=== PATIENT | female | born 1980 | race Caucasian/White ===

== ENCOUNTER 2017-05-16 13:41 | Emergency (ER) | payer OTHER, MEDICAID ==
[2017-05-16 14:05] VITALS: BP 127/75
[2017-05-16] MEDS ORDERED: ACET325T9 PO (14:12)
[2017-05-16] MEDS ORDERED: DIAZ5TAB PO (14:12)
--- NOTE | 2017-05-16 14:12 | PHYS DOC ---
Past Medical History Past Medical History: Bipolar, Depression, Schizophrenia Past Surgical History: Hysterectomy, Knee Replacement, Tubal ligation Additional Past Surgical Histo: carpal tunnel bilaterally, wrist surgery Smoking: Cigarettes, 1 Pack Per Day Alcohol Use: None Drug Use: None Adult General Chief Complaint Chief Complaint: LOWER EXT PAIN [facility] HPI Patient is a pleasant 37 showed female with a history of morbid obesity, bipolar disorder, schizophrenia who presents with sudden onset of Pain began while trying to extract several vehicle. 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 Is it while crawling she caught her calf and on position when she flexes that she felt immediate pain and swelling of the muscle at the base of the left calf. It is markedly tender localized over that muscle spasm with no obvious signs of deformity, redness, rash, bony tenderness to palpation or inability to walk. She denies any shortness of breath, denies any prior history of DVT or other clotting disorder. Patient would've taken Tylenol but is not having home. She is allergic to Motrin. I does a dull ache 6 at 10 at this time worse with direct pressure and walking on that. Review of Systems Review of Systems Constitutional: Denies fever or chills [] Eyes: Denies change in visual acuity, redness, or eye pain [] HENT: Denies nasal congestion or sore throat [] Respiratory: Denies cough or shortness of breath [] Cardiovascular: No additional information not addressed in HPI [] GI: Denies abdominal pain, nausea, vomiting, bloody stools or diarrhea [] : Denies dysuria or hematuria [] Musculoskeletal: Denies back pain or joint pain she does complain left calf over the lateral muscle within the gastrocnemius. skin: Denies rash or skin lesions [] Neurologic: Denies headache, focal weakness or sensory changes [] Endocrine: Denies polyuria or polydipsia [] Physical Exam Physical Exam Constitutional: Well developed, well nourished, no acute distress, non-toxic appearance. [] Cardiovascular:Heart rate regular rhythm, no murmur [] Lungs & Thorax: Bilateral breath sounds clear to auscultation [] Skin: No warmth, no erythema, no obvious signs of trauma, no soft tissue swelling. Back: No tenderness, no CVA tenderness. [] Extremities: Patient does have tenderness along the lateral body of the struck anemia symptoms localize with local spasm. There is no Homans sign there is no obvious signs of trauma spasm is easily localized and reproducible on exam. Capillary refill of the skin is brisk at +2 peripheral pulses. Neurologic: Alert and oriented X 3, normal motor function, normal sensory function, no focal deficits noted. [] Psychologic: Affect normal, judgement normal, mood normal. [] EKG EKG [] Radiology/Procedures Radiology/Procedures [] Course & Med Decision Making Course & Med Decision Making Pertinent Labs and Imaging studies reviewed. (See chart for details) This is a pleasant 37-year-old climbing out of a vehicle and straining a muscle in her calf. I do not consider this a risk factor for DVT. She has got no Homans sign no evidence of pain other than localized to the calf muscle itself. Impression: Muscle strain Disposition discharge home with PCP follow-up given Tylenol and Valium. Dragon Disclaimer Dragon Disclaimer This electronic medical record was generated, in whole or in part, using a voice recognition dictation system. Departure Departure Impression: Primary Impression: Strain of calf muscle Disposition: 01 HOME, SELF-CARE Condition: IMPROVED Patient Instructions: Muscle Strain Additional Instructions: Please return for any localized or increasing swelling and pain despite treatment. sHe may use warm compresses to improve symptom control. Please return immediately if the swelling and the pain is especially worse or if you have any other questions or concerns. Scripts Diazepam (VALIUM) 5 Mg Tablet 5 MG PO TID for MUSCLE SPASMS for 5 Days, #15 TAB Prov: PERRY GUZMAN MD 05/16/17 Acetaminophen (TYLENOL) 325 Mg Tablet 1-2 TAB PO QID, #60 TAB 2 Refills Prov: PERRY GUZMAN MD 05/16/17 PERRY GUZMAN MD May 16, 2017 14:12
== END 2017-05-16 14:28 | disposition home or self-care (01) ==
LOC: ER 13:41
DX: S86.812A Strain of other muscle(s) and tendon(s) at lower leg level, left leg, initial encounter (principal); F31.9 Bipolar disorder, unspecified; F20.9 Schizophrenia, unspecified; E66.01 Morbid (severe) obesity due to excess calories; F17.210 Nicotine dependence, cigarettes, uncomplicated; Z96.659 Presence of unspecified artificial knee joint; Z90.710 Acquired absence of both cervix and uterus; Z98.51 Tubal ligation status; X58.XXXA Exposure to other specified factors, initial encounter; Y93.89 Activity, other specified; Y92.89 Other specified places as the place of occurrence of the external cause; Y99.8 Other external cause status
CPT/HCPCS: 99283